=== PATIENT | female | born 1960 | race African-American/Black ===

== ENCOUNTER 2019-09-12 12:08 | Inpatient (IN) | payer OTHER ==
[2019-09-12] VITALS (53 sets, daily range): BP systolic 80–109; BP diastolic 55–81; PULSE 93–110; TEMP 98.1–98.9; O2SAT 96–99
[~2019-09-12] VITALS: Ht 170.2 cm; Wt 99.0 kg
--- NOTE | 2019-09-12 13:00 | NUR ---
PATIENT ARRIVES AT THIS TIME. SHE IS AWAKE AND ALERT. OXYMASK IN PLACE AT 15L O2 FLOW. LEVOPHED INFUSING FOR BP SUPPORT. LR INFUSING AT 100 CC/HR AND [address] VALVERDE NOTIFIED OF ARRIVAL
[2019-09-12 13:50] LABS: HEMATOCRIT 25.1 % (37.0-47.0); HEMOGLOBIN 8.2 g/dl (12.5-16.0)
[2019-09-12] MEDS ORDERED: ULTRAM 50MG TAB50 MG PO (14:41)
[2019-09-12] MEDS ORDERED: CLARITIN 1010 MG/TAB PO (14:41)
[2019-09-12] MEDS ORDERED: LIPITOR 80MG80 MG PO (14:42)
[2019-09-12] MEDS ORDERED: HCTZ 25MG TAB25 MG PO (14:42)
[2019-09-12] MEDS ORDERED: ADALAT CC30 MG PO (14:42)
[2019-09-12] MEDS ORDERED: DULCOLAX STOOL100 MG PO (14:43)
[2019-09-12] MEDS ORDERED: NATURAL C500 MG PO (14:43)
[2019-09-12] MEDS ORDERED: FERRO-TIME325 MG PO (14:43)
[2019-09-12] MEDS ORDERED: B-121000 MCG PO (14:43)
[2019-09-12] MEDS ORDERED: ZANTAC 150150 MG PO (14:44)
[2019-09-12] MEDS ORDERED: REFRESH TEARS 330 ML OP (14:44)
[2019-09-12] MEDS ORDERED: VALU-DRYL ALLER25 MG PO (14:44)
[2019-09-12] MEDS ORDERED: HYDROCORTISONE VALERATE TP (14:45)
--- NOTE | 2019-09-12 17:15 | NUR ---
PATIENT RETURNS FROM OPERATING ROOM WITH ADEBAYO SANCHEZ AND MEATMAN, SULEMAN. PATIENT AWAKE AND ALERT. SHE IS SLIGHTLY CONFUSED D/T ANESTHESIA MEDS. CONTINUES TO BE ON LEVOPHED FOR BP SUPPORT. SULEMAN TO RECOVER AT BEDSIDE IN ICU.
--- NOTE | 2019-09-12 17:45 | NUR ---
JOSIE SHELL REPORTS OFF TO JOSIE LOMELI. ARMANI ASSUMES CARE AT THIS TIME.
--- NOTE | 2019-09-12 17:45 | NUR ---
Patient returned from surgery at 1715 with LR and Levophen infusing, RAMAKRISHNA drains to bilateral abdomen, abdonimal binder in place, solorzano draining to gravity. Patient alert and oriented, care assumed at this time from surgery nurse. Left subclavian central line placed in surgery, flushes well with good blood return, infusing well. Patient and oriented to room and unit, encouraged to use call light for assistance.
--- NOTE | 2019-09-12 18:38 | NUR ---
Oxygen titrated to 1 liter/min via oxymask at 1807 with SpO2 of 100% , patient still showing SpO2 of 100% so oxygen discontinued at this time while patient is sitting up and eating. Current SpO2 94% on room air-tolerated well, no complaints of shortness of breath.
[2019-09-12 18:39] LABS: HEMATOCRIT 22.2 % (37.0-47.0)
[2019-09-12 18:40] LABS: HEMOGLOBIN 7.2 g/dl (12.5-16.0)
[2019-09-12 19:13] LABS: CALCIUM 7.6 mg/dL (8.4-10.2); CREATININE, serum 1.46 (0.52-1.25)
[2019-09-12 19:50] LABS: MEAN CELL VOLUME 97 fl (80.0-100.0); MEAN CORPUSCULAR HEMOGLOBIN 32 pg (27.0-31.0); MEAN CORPUSCULAR HGB CONC 33 g/dl (33.0-37.0); MEAN PLATELET VOLUME 11.5 fl (7.4-10.4); PLATELET COUNT 272 K/mm3 (130-400); RED BLOOD COUNT 2.31 M/mm3 (4.10-5.30); REDCELL DISTRIBUTION WIDTH-CV 14.9 % (11.5-14.5)
--- NOTE | 2019-09-12 20:14 | NUR ---
DR. VALVERDE CALLED, UPDATED REGARDING PT'S STATUS AND HGB. WANTS TO BE CALLED FOR HGB RESULT AROUNG MIDNIGHT AND WILL DO.
[2019-09-12 20:23] LABS: BAND 17 % (0-10); LYMPHOCYTE 12 % (20.0-51.0); NEUTROPHILS 67 % (42.0-75.2); NUCLEATED RED BLOOD CELL 1 (0-6)
[2019-09-12 20:24] LABS: HYPOCHROMIA 4+
[2019-09-13] VITALS (651 sets, daily range): BP systolic 89–109; BP diastolic 54–85; PULSE 87–120; TEMP 98.9–99.6; O2SAT 90–100
[2019-09-13 00:07] LABS: HEMOGLOBIN 6.8 g/dl (12.5-16.0)
--- NOTE | 2019-09-13 00:18 | NUR ---
Hgb came back at 6.8, reported to [facility]. awaiting for orders.
--- NOTE | 2019-09-13 00:52 | NUR ---
[facility] ORDERED TO TRANSFUSE [address] VALVERDE UODATED WELL REGARDING PT'S STATUS.
--- NOTE | 2019-09-13 04:00 | NUR ---
1 UNIT OF PRBC TRANSFUSED. NO ADVERSE REACTION NOTED AT THIS TIME. PT DENIES ANY PAIN, SOB OR ANY DISCOMFORT. VITAL SIGNS WNL. PT TOLERATED TRANSFUSION WELL.
[2019-09-13 06:33] LABS: MEAN CELL VOLUME 94 fl (80.0-100.0); MEAN CORPUSCULAR HGB CONC 33 g/dl (33.0-37.0); MEAN PLATELET VOLUME 11.3 fl (7.4-10.4); PLATELET COUNT 219 K/mm3 (130-400); RED BLOOD COUNT 2.35 M/mm3 (4.10-5.30); REDCELL DISTRIBUTION WIDTH-CV 15.3 % (11.5-14.5)
[2019-09-13 06:48] LABS: HEMATOCRIT 22.1 % (37.0-47.0); HEMOGLOBIN 7.3 g/dl (12.5-16.0); MEAN CORPUSCULAR HEMOGLOBIN 31 pg (27.0-31.0)
[2019-09-13 06:57] LABS: ALBUMIN 2.7 gm/dL (3.5-5.0); BILIRUBIN UNCONJUGATED 0.4 mg/dL (0.0-1.1); BILIRUBIN,TOTAL 0.4 mg/dL (0.0-1.0); CALCIUM 7.7 mg/dL (8.4-10.2); CREATININE, serum 1.18 (0.52-1.25); POTASSIUM 4.5 mmol/L (3.4-5.0); TOTAL PROTEIN 5.1 gm/dL (6.4-8.2)
[2019-09-13 07:22] LABS: MAGNESIUM 1.9 mg/dL (1.6-2.3)
[2019-09-13 07:33] LABS: BAND 43 % (0-10); LYMPHOCYTE 20 % (20.0-51.0); NEUTROPHILS 30 % (42.0-75.2)
[2019-09-13 07:34] LABS: ANISOCYTOSIS 1+; HYPOCHROMIA 1+; PLATELET ESTIMATE NORMAL (NORMAL)
--- NOTE | 2019-09-13 08:30 | NUR ---
PT C/O TENDERNESS TO PELVIC REGION AND RIGHT SIDE UPON PALPATION. BOTH SITES APPEAR TO BE WITHOUT BRUISING. PT DENIES PAIN.
--- NOTE | 2019-09-13 11:45 | NUR ---
PT HAVING INCREASED DRAINAGE FROM RAMAKRISHNA DRAIN (B) ON LEFT SIDE; DR PALOMO INFORMED. PT CONTINUES TO HAVE TENDERNESS IN PELVIC REGION AND RIGHT SIDE. RIGHT SIDE HAS DECREASED DRAINAGE.
--- NOTE | 2019-09-13 13:09 | NUR ---
Plan is to return home unless SNF is recommended. SW met with patient and patient's Adan in room. Patient gave permision to discuss med-info infront of spouse. Patient reports that they resides in [place]. Patient wants Yoselin Bray Son apart of emr contact. Patient reports that she had a second surgery yesterday due to complications of the surgery on 09/[address] Castaneda. Patient reports that she does not normally need any DME or home health services but are unsure on what they may need at this time. Pcp is reported as Dr. Geller and the patient obtains medications at the [facility] [address]. Patient reports DPOA at her . Patient is not opposed to home health services. Will will continue to follow care for additonal supports.
[2019-09-13 14:20] LABS: HEMATOCRIT 19.1 % (37.0-47.0); HEMOGLOBIN 6.4 g/dl (12.5-16.0)
[2019-09-13 17:22] LABS: PROTHROMBIN TIME 12.1 SECONDS (9.7-12.8)
[2019-09-13 17:24] LABS: PARTIAL THROMBOPLASTIN TIME 24.3 SECONDS (26.0-37.0)
--- NOTE | 2019-09-13 17:45 | NUR ---
PT'S RAMAKRISHNA DRAIN (A) ON RIGHT SIDE IS NOT DRAINING. TUBING IS STRIPPED TO ASSIST WITH DRAINAGE. RAMAKRISHNA DRAIN (B) ON LEFT SIDE HAS CONTINUED DRAINAGE NEEDING TO BE EMPTIED EVERY 1-2 HOURS. PT DENIES PAIN, BUT WHEN PRESSURE IS APPLIED TO RIGHT SIDE ALONE RAMAKRISHNA DRAIN INSERTION AND PELVIC REGION PT DOES STATE TO HAVE DISCOMFORT. PRIOR TO INITIATING PTS BLOOD PRODUCT AND ROCEPHIN, PT C/O THE SMELL OF HER FOOD MAKING HER "SICK" AND WANTING IT REMOVED FROM BEDSIDE TABLE. FOOD WAS REMOVED TO COUNTER. PT STATES SHE WAS NO LONGER NAUSEATED AFTER REMOVAL OF FOOD. 1800: BLOOD PRODUCT INITIATED 1809: ROCEPHIN INFUSING 181: PT VOMITING. PT ASSESSED FOR SIGNS OF TRANSFUSION REACTION; NONE. VSS. 181: CONTACTED FOR ZOFRAN ORDERS. 1820: PT ADMINISTERED ZOFRAN NAUSEA/VOMITING RESOLVED. CONTINUE TO MONITOR PT FOR ADDITIONAL 15 MIN.
--- NOTE | 2019-09-13 19:40 | NUR ---
Bedside report recieved from JOSIE Peter. Patient awake and denies pain at this time. Abdominal binder removed temporarily to assess abdominal incisions. Low transverse insicion CDI with dressing in place. Small midline surgical site also CDI with dressing intact. Bilateral RAMAKRISNHA drains with dressings intact and no complications noted. Right RAMAKRISHNA drain with scant serosanguinous drainage noted. Left RAMAKRISHNA drain with 30ml of sanguinous drainage emptied and bulb reapplied. LSC triple lumen with dressing intact. MIVF running at ordered rate. Levophed gtt remains on standby. PRBC transfusion running as ordered. Care assumed at this time.
[2019-09-13 22:18] LABS: HEMATOCRIT 18.4 % (37.0-47.0); HEMOGLOBIN 6.3 g/dl (12.5-16.0)
--- NOTE | 2019-09-13 22:20 | NUR ---
Dr. Garcia called with critical post transfusion H&H as documented. Relevant patient assessment and vitals are also relayed. informed of available unit of PRBC. Dr. Garcia asks for and is provided hospital contact info for supervisor shuttle preparation. No new orders recieved at this time.
--- NOTE | 2019-09-13 22:43 | NUR ---
Dr. Aparicio calls for patient report and is provided SBAR. All questions asked answered. MD provides orders as entered for FFP, PRBC, and AM abd/pelvis CT scan. Care ongonig.
[2019-09-14] VITALS (566 sets, daily range): BP systolic 89–105; BP diastolic 51–71; PULSE 72–89; TEMP 98.9–100; O2SAT 89–100
[2019-09-14 03:07] LABS: HEMATOCRIT 21.1 % (37.0-47.0); HEMOGLOBIN 7.1 g/dl (12.5-16.0)
[2019-09-14 08:36] LABS: BASO % 0.1 % (0.0-2.0); EOS # 0.1 (0.0-0.7); LYMPH # 1.9 (1.2-3.4); MEAN CELL VOLUME 93 fl (80.0-100.0); MEAN CORPUSCULAR HGB CONC 33 g/dl (33.0-37.0); MEAN PLATELET VOLUME 10.3 fl (7.4-10.4); MONO # 0.9 (0.1-0.6); MONO % 10.2 % (1.7-9.3); RED BLOOD COUNT 2.16 M/mm3 (4.10-5.30); REDCELL DISTRIBUTION WIDTH-CV 17.4 % (11.5-14.5)
[2019-09-14 08:40] LABS: HEMATOCRIT 20.1 % (37.0-47.0); MEAN CORPUSCULAR HEMOGLOBIN 31 pg (27.0-31.0); PLATELET COUNT 111 K/mm3 (130-400)
[2019-09-14 08:43] LABS: HEMOGLOBIN 6.6 g/dl (12.5-16.0)
[2019-09-14 08:50] LABS: CALCIUM 7.7 mg/dL (8.4-10.2); CREATININE, serum 0.94 (0.52-1.25); POTASSIUM 3.9 mmol/L (3.4-5.0)
--- NOTE | 2019-09-14 15:00 | NUR ---
GAVE REPORT TO JOSIE GOYAL AT [facility]. PT WILL GO TO ROOM 308. EMS WILL BE HERE AT 1530
--- NOTE | 2019-09-14 15:20 | NUR ---
[facility] HERE TO TRANSPORT PATIENT TO [facility], PT STILL HAD 1 UNIT OF PRBC INFUSING, PT VITALS STABLE AND NOTIFIED OF TRANSPORT.
== END 2019-09-14 15:20 | disposition short-term general hospital (02) | DRG 907 ==
LOC: ICU 12:08
PROVIDERS: Internal Medicine; Internal Medicine Critical Care Medicine; Plastic Surgery; Surgery; ADMIT Hospitalist
PROC: B5181ZA Fluoroscopy of Superior Vena Cava using Low Osmolar Contrast, Guidance (ICD-10-PCS; 2019-09-12)
PROC: 0W9F0ZZ Drainage of Abdominal Wall, Open Approach (ICD-10-PCS; principal; 2019-09-12 14:00)
PROC: 02HV33Z Insertion of Infusion Device into Superior Vena Cava, Percutaneous Approach (ICD-10-PCS; 2019-09-12 14:00)
DX: K91.870 Postprocedural hematoma of a digestive system organ or structure following a digestive system procedure (principal); R57.1 Hypovolemic shock; D62 Acute posthemorrhagic anemia; Y83.8 Other surgical procedures as the cause of abnormal reaction of the patient, or of later complication, without mention of misadventure at the time of the procedure; E78.5 Hyperlipidemia, unspecified; K21.9 Gastro-esophageal reflux disease without esophagitis; R73.9 Hyperglycemia, unspecified; R73.03 Prediabetes; R09.02 Hypoxemia; D72.829 Elevated white blood cell count, unspecified; R55 Syncope and collapse; I10 Essential (primary) hypertension; Z90.49 Acquired absence of other specified parts of digestive tract; Z98.84 Bariatric surgery status
CPT/HCPCS: 99223-AI; 99232-AI; 99239; C1751; C9113; J0330; J0690; J0696; J1100; J1815; J2250; J2370; J2405; J2710; J3010; J7050; J7060; J7120; P9016

== ENCOUNTER 2019-09-28 02:48 | Emergency (ER) | payer OTHER ==
[~2019-09-28] VITALS: Ht 170.2 cm; Wt 90.9 kg
[~2019-09-28 02:48] MED LIST: ADALAT CC30 MG PO; B-121000 MCG PO; CLARITIN 1010 MG/TAB PO; DULCOLAX STOOL100 MG PO; FERRO-TIME325 MG PO; HCTZ 25MG TAB25 MG PO; HYDROCORTISONE VALERATE TP; LIPITOR 80MG80 MG PO; NATURAL C500 MG PO; REFRESH TEARS 330 ML OP; ULTRAM 50MG TAB50 MG PO; VALU-DRYL ALLER25 MG PO; ZANTAC 150150 MG PO
[2019-09-28 02:54] VITALS: TEMP 97.6
[2019-09-28 03:39] LABS: BASO % 0.5 % (0.0-2.0); EOS # 0.4 (0.0-0.7); GRAN # 4.8 (1.4-6.5); GRAN % 60.5 % (42.2-75.2); HEMOGLOBIN 10.1 g/dl (12.5-16.0); LYMPH % 25.2 % (20.0-51.0); MEAN CELL VOLUME 100 fl (80.0-100.0); MEAN CORPUSCULAR HEMOGLOBIN 31 pg (27.0-31.0); MEAN CORPUSCULAR HGB CONC 31 g/dl (33.0-37.0); MEAN PLATELET VOLUME 9.2 fl (7.4-10.4); MONO # 0.7 (0.1-0.6); MONO % 8.4 % (1.7-9.3); PLATELET COUNT 329 K/mm3 (130-400); RED BLOOD COUNT 3.28 M/mm3 (4.10-5.30); REDCELL DISTRIBUTION WIDTH-CV 16.3 % (11.5-14.5)
[2019-09-28 03:41] LABS: HEMATOCRIT 32.8 % (37.0-47.0)
[2019-09-28 03:53] LABS: ALANINE AMINOTRANSFERASE 16 U/L (9-52); ALBUMIN 3.8 gm/dL (3.5-5.0); ALKALINE PHOSPHATASE 91 U/L (50-136); ANION GAP 7 mmol/L (7-16); AST,SGOT 19 U/L (15-37); BILIRUBIN,TOTAL 0.3 mg/dL (0.0-1.0); BLOOD UREA NITROGEN 11 mg/dL (7-17); C-REACTIVE PROTEIN < 0.5 mg/dL (0.0-0.9); CALCIUM 8.9 mg/dL (8.4-10.2); CARBON DIOXIDE 25 mmol/L (22-30); CHLORIDE 111 mmol/L (98-107); CREATININE, serum 0.87 (0.52-1.25); GLUCOSE 131 mg/dL (74-106); LIPASE 181 U/L (23-300); POTASSIUM 4.4 mmol/L (3.4-5.0); SODIUM 143 mmol/L (137-145)
[2019-09-28] MEDS ORDERED: CEPHALEXIN500 M1 PO (05:40)
[2019-09-28] MEDS ORDERED: NORCO 325 MG-51 TAB PO (05:40)
[2019-09-28] MEDS ORDERED: DOXYCYCLINE 10100 MG PO (05:40)
[2019-09-28 06:27] VITALS: BP 114/68; PULSE 67
== END 2019-09-28 06:27 | disposition home or self-care (01) ==
LOC: COL.ER 02:48
PROVIDERS: Emergency Medicine
DX: T81.49XA Infection following a procedure, other surgical site, initial encounter (principal); Z98.870 Personal history of in utero procedure during pregnancy
CPT/HCPCS: J0690; J1170; J7030